=== PATIENT | male | born 1950 | race African-American/Black ===

== ENCOUNTER 2019-08-15 09:05 | Outpatient (CLI) | payer MEDICARE ==
--- NOTE | 2019-08-15 10:48 | XRay Report ---
CERVICAL SPINE 5 VIEWS INDICATION: Posterior neck pain. Neck pain radiating down to shoulders. COMPARISON: No relevant prior imaging study available. FINDINGS: VERTEBRAE: No acute fracture. Normal alignment. DISC SPACES: Multilevel moderate discogenic degenerative changes are most significant at C5-C6. FACET JOINTS: There is multilevel bilateral facet hypertrophy. SOFT TISSUES: Mild left carotid atherosclerosis is noted. No additional significant abnormality. ADDITIONAL FINDINGS: No additional significant findings. IMPRESSION: 1. No acute findings. 2. Moderate cervical spondylosis. Signer Name: Cordell Jurado MD Signed: 08/15/2019 10:44 AM Workstation Name: [id number]
== END 2019-08-15 09:06 | disposition home or self-care (01) ==
LOC: XRAY 09:05
PROVIDERS: ATTEND Internal Medicine
DX: M47.812 Spondylosis without myelopathy or radiculopathy, cervical region (principal)
CPT/HCPCS: 72050